=== PATIENT | male | born 1990 | race African-American/Black ===

== ENCOUNTER 2020-03-31 10:25 | Emergency (ER) | payer MEDICAID, SELFPAY ==
[2020-03-31] VITALS (13 sets, daily range): BP systolic 111–151; BP diastolic 69–85; PULSE 66–89; RESP 13–20; TEMP 36.6; O2SAT 99–100
--- NOTE | 2020-03-31 10:43 | W.ED.GENAD ---
Discharge Plan Disposition Patient Disposition: HOME Condition: Stable Discharge Details Clinical Impression: Pain, dental, Abdominal pain, Facial twitching, Anxiety Primary Care Provider: None,None ED Provider: Syd Osorio Home Meds and New Rx's Prescriptions: Continued buprenorphine-naloxone [Suboxone] 8-2 mg Film 1 film SUBLINGUAL DAILY RF: 0 Discharge Instructions Instructions: Abdominal Pain (ED), Toothache (ED), Anxiety (ED) Additional Instructions: At this time your evaluation does not reveal any obvious emergent process. It appears as though you have multiple ongoing complaints. I have placed you on the care management list to help get you an outpatient primary care provider for your ongoing medical needs. I do believe that establish primary care should be your first priority. If your symptoms persist then outpatient referral to neurology, GI, surgery, etc. may be indicated for further evaluation. I have also given you the local dental list to help expedite care of your dental pain. Please watch for new or worsening symptoms and return to the ER for any concerns. Discharge Data Discharge Date/Time-TO BE ENTERED AT DEPARTURE: 03/31/20 11:45 Medical Decision Making This is a 29-year-old gentleman presents to the ER today with multiple complaints. He is reporting 1 year history of left-sided facial twitching, chronic right lower dental pain, abdominal pain intermittently for the past 1-2 months, better after bowel movements. Patient also reports untreated and worsening anxiety. Clinically he appears well, nontoxic. He is neurologically intact. He is afebrile, O2 sats 100% on room air, pulse 87. He is slightly hypertensive but anxious. History of being on metoprolol, question if this needs to be restarted as an outpatient. I explained to the patient today that his evaluation is unremarkable, no clear indication for emergent imaging of his brain, laboratory values, etc. I felt as though the most appropriate plan for the patient is to set him up with all of the outpatient resources that he may need. I will place him on the care management list to help expedite outpatient primary care follow-up. I have also asked that care management help set the patient up with outpatient mental health resources for his ongoing anxiety. I will give him the dental list so that he may get set up with a local dentist. He understands that if symptoms persist then his primary care provider may eventually refer him to other specialist such as neurology, GI, surgery, etc. Patient has no additional questions or concerns and is comfortable with this plan. He appears stable, nontoxic, and is neurologically intact. Ambulate out of the department without any difficulty. HPI General Mode of arrival: ambulatory. Date/Time Provider Initiated Documentation: 03/31/20 10:26. Limitations to Documentation: no limitations. Information obtained by: patient. HPI Narrative: This is a 29-year-old gentleman presenting to the ER with multiple various complaints. He states that the only medication he currently takes his Suboxone. He used to be on metoprolol for hypertension and a benzodiazepine for anxiety. He presents to the ER today stating that he does not have a primary care provider. He has been having twitching in his face below his left eye for roughly a year, intermittent in nature, more so over the past week. He feels as though the twitching is now into the left cheek and now just below his eye like it has been. Nothing really makes this worse or better. He is not having any twitching currently. He denies any headache, visual changes, neck pain. He also reports 1-2-month history of intermittent abdominal pain, increased gassiness and cramping. Diffuse in nature but reports more central. Pain typically goes away on its own after a bowel movement. He denies any black tarry stools or bright red blood in the stools. Denies any nausea or vomiting. He denies any chest pain, shortness of breath, cough. He in triage reported that his neck on the left side feels swollen but he does not mention this to me whatsoever even when prompted about any neck complaints. He reports right lower dental pain that has been ongoing, knows that he has a cavity, does not have a dentist. Lastly, he feels as though his anxiety overall is worsening, he is not currently on anything for anxiety. At this very moment he denies any twitching to his left face, abdominal pain, dental pain. Related Data Home Medications Medication Instructions Recorded Confirmed buprenorphine-naloxone [Suboxone] 1 film SUBLINGUAL DAILY 03/31/20 03/31/20 Allergies Allergy/AdvReac Type Severity Reaction Status Date / Time [employer] And Derivatives Allergy Hives Unverified 03/31/20 10:56 lactose Allergy intolerant Unverified 03/31/20 10:56 General Stated Complaint: GenMedical CORAL: 3 Review of Systems Constitutional Constitutional: Denies fatigue, Denies fever(s), Denies headache(s) and Denies weakness Eyes Eyes: Denies change in vision ENT Ears, Nose, Mouth, and Throat: Reports dental pain and Denies headache(s) Cardiovascular Cardiovascular: Denies chest pain and Denies dyspnea Respiratory Respiratory: Denies cough and Denies dyspnea Gastrointestinal Gastrointestinal: Reports abdominal pain, Denies nausea and Denies vomiting Genitourinary Genitourinary: Denies dysuria Musculoskeletal Musculoskeletal: Denies back pain, Denies numbness and Denies tingling Integumentary/Breasts Skin/Breast: Denies rash Neurologic Neurologic: Denies headache(s), Denies numbness, Denies tingling and Denies weakness Psychiatric Psychiatric: Reports anxiety Endocrine Endocrine: Denies fatigue [facility] Social History Smoking/Tobacco Use Status: Current every day Tobacco Type: cigarettes Smoking risk assessment performed?: Yes Alcohol Intake: never Drug use: Daily Substance use type: marijuana Do you feel safe at home: Yes Do you feel safe in your relationship?: Yes Exam Const General: cooperative, healthy appearing, comfortable, no acute distress and anxious Orientation: alert, awake and oriented x3 HENMT Head: normal to inspection, normocephalic and atraumatic Face and sinus: normal facial exam Mouth: moist mucous membranes Teeth image: 1. Anterior aspect of tooth #31 with what appears to be a fracture. No discomfort, localized swelling or erythema. No pointing abscess Throat: posterior oropharynx normal Eyes General: appearance normal, both eyes and all related structures Conjunctivae: conjunctivae normal Sclera: sclerae normal Neck Neck: normal visual inspection, full ROM, no meningeal signs, trachea midline, supple and nontender Resp Effort & Inspection: normal respiratory effort and able to speak in complete sentences Auscultation: clear to auscultation bilaterally Cardio Rate: regular rate Rhythm: regular rhythm GI Inspection: normal to inspection Palpation: soft, not firm, no guarding, no pulsatile masses and nontender Auscultation: normal bowel sounds Back/Spine/Pelvis Back: No back tenderness Skin General skin exam: no rashes or lesions noted Neuro General: patient alert, patient awake, patient oriented x3, moves all extremities and no focal motor deficits Cranial Nerves: CN's II-XI intact bilaterally Cognition: normal cognition Speech: speech normal Gait: normal gait Motor: muscle tone normal throughout, strength 5/5 throughout and no fasciculations Sensory Exam: no sensory deficits noted Extrem General: normal to inspection, full ROM, capillary refill normal, no pedal edema and no calf tenderness Psych Appearance: grossly normal Mental Status: mental status grossly normal Course Vital Signs Vital signs: Vital Signs Temperature 36.6 C 03/31/20 10:33 Pulse 87 03/31/20 10:33 Respiratory Rate 20 03/31/20 10:33 Blood Pressure 151/85 H 03/31/20 10:33 Pulse Oximetry 100 03/31/20 10:33 Temperature 36.6 C 03/31/20 10:33 Temperature Source Temporal Artery Scan 03/31/20 10:33 Pulse 87 03/31/20 10:33 Respiratory Rate 20 03/31/20 10:33 Respiratory Effort Non-Labored 03/31/20 10:39 Blood Pressure 151/85 H 03/31/20 10:33 Blood Pressure Position Supine 03/31/20 10:33 Pulse Oximetry 100 03/31/20 10:33 Oxygen Delivery Method Room Air 03/31/20 10:33 Oxygen Flow Rate 0 03/31/20 10:33 Pain Level 0 03/31/20 10:33
--- NOTE | 2020-03-31 11:36 | NUR.NOTE ---
Nursing Note: Referral to get a PCP and establish care given to Care Management. Karina Fuentes
--- NOTE | 2020-03-31 16:34 | PDOC.ERCMPRO ---
- If Service Date Differs Date of service: 03/31/20 Time of Service: 16:34 Care Management Progress Note Jomar is seen in the ED today for dental pain, abdominal pain, facial twitching, and anxiety. At the request of ED provider, ARNIE coordinates a referral to Anu Che of [facility], on-call provider, to assist Jomar in obtaining a follow up appointment and in establishing care with a PCP. A referral is also made to the [facility] community field human resources manager, as Jomar appears to have [place] Medicaid for health insurance. The coordinator can assist him in transferring the Medicaid from [place] to [place].
== END 2020-03-31 11:45 | disposition home or self-care (01) ==
PROVIDERS: Emergency Provider Physician Assistant
DX: R25.3 Fasciculation (principal); R41.9 Unspecified symptoms and signs involving cognitive functions and awareness; R68.84 Jaw pain
CPT/HCPCS: 99284; 99283